=== PATIENT | female | born 1950 | race Caucasian/White ===

== ENCOUNTER 2022-09-30 00:03 | Emergency (ER) | payer MEDICARE, BC, SELFPAY ==
[2022-09-30 00:06] VITALS: BP 177/87; PULSE 65; RESP 18; TEMP 36.6; O2SAT 97; BMI 43.1
--- NOTE | 2022-09-30 00:56 | RAD_ITS ---
INDICATION: cough EXAMINATION/TECHNIQUE: X-RAY - XR Chest 2 Views COMPARISON: None. FINDINGS: LINES/DEVICES: None. LUNGS: No consolidation or evidence of an effusion. No evidence of edema or a pneumothorax. MEDIASTINUM AND CARDIOVASCULAR STRUCTURES: Cardiac silhouette is normal in size and contour. Mediastinum is unremarkable. BONES AND SOFT TISSUES: No acute abnormality. RAD/Chest PA and Lateral IMPRESSION: No evidence of acute cardiopulmonary disease. Electronically Signed: Alex Sims DO at 1:43 EDT ,
[2022-09-30 01:09] VITALS: PULSE 66; RESP 18
[2022-09-30] MEDS: Ipratropium/Albuterol Sulfate 3 ML AMPUL.NEB INHALATION ×2 (01:09→02:26)
[2022-09-30] MEDS: Morphine 4 MG/ML Syringe IV (01:11)
[2022-09-30] MEDS: Ondansetron 4 MG/2 ML Vial IV (01:11)
[2022-09-30] MEDS: MethylPREDNISolone 125 MG/2 ML Vial IV (01:12)
[2022-09-30 01:26] LABS: Absolute Lymphocyte Count 2.31 X10^3/uL (0.83-4.51); Absolute Neutrophil Count 2.1 X10^3/uL (2.0-7.7); Basophil# 0.02 X10^3/uL; Basophil% 0.4 % (0-1); Eosinophil# 0.14 X10^3/uL; Eosinophils% 2.8 % (0-5); Hematocrit 38.1 % (37-47); Hemoglobin 12.4 g/dL (12.0-15.0); Lymphocyte # 2.31 X10^3/ul (0.83-4.51); Mean Corp Hgb Conc 32.5 g/dL (32-36); Mean Corpuscular Hgb 31.7 pg (27.0-32.0); Mean Corpuscular Volume 97.4 fL (81-99); Mean Platelet Vol. 9.7 fl (6.2-12.0); Monocyte# 0.44 X10^3/uL; Monocyte% 8.8 % (0-10); NRBC Flagged by Analyzer 0 % (0-5); Neutrophil # 2.09 X10^3/uL (2.7-7.7); Neutrophil % 41.6 % (47-70); Platelet Count 224 K/mm3 (150-450); RBC Distribution Width CV 13.1 % (11.6-14.6); RBC Distribution Width SD 46.8 fl (35.1-43.9); Red Blood Count 3.91 M/mm3 (4.2-5.4)
[2022-09-30] MEDS: Orphenadrine 60 MG/2 ML Ampul IV (01:30)
[2022-09-30 01:39] VITALS: BP 189/65; PULSE 62; RESP 20; O2SAT 95
[2022-09-30 01:41] LABS: Anion Gap 8 (5-15); BUN 17 mg/dL (7-18); BUN/Creat Ratio 15.7 RATIO (10-20); Calcium,Total 9.1 mg/dL (8.5-10.1); Chloride 102 mmol/L (98-107); Creatinine, Serum 1.08 mg/dL (0.55-1.02); EST Glomerular Filtration Rate 53 mL/min (>60); Est Glom Filt Rate - Afr Amer 65 mL/min (>60); Estimated Creatinine Clearance 38.34 ml/min; Glucose 114 mg/dL (74-106); Potassium 3.1 mmol/L (3.5-5.1); Sodium Level 139 mmol/L (136-145)
[2022-09-30 01:59] LABS: D-Dimer Quantitative (DVT/PE) 0.61 FEU/ug/m (0.27-0.49)
--- NOTE | 2022-09-30 02:20 | EDS_ITS ---
HPI History of Present Illness Chief Complaint: Chest Other Informant: patient and spouse/S.O. Narrative Narrative: Patient is a 72-year-old female with past medical history of hypertension and IBS. She states that she has had some mild congestion and cough for the past 5 to 7 days. She states it is a point now where she has right-sided rib pain that worsens with cough or motion. She denies any trauma. She denies any history of DVT/PE but does report that she recently traveled to and from [place] and [place]. At this time with the persistent cough and shortness of breath and now right- sided rib pain she is concerned about possible infection or clot and therefore comes in for evaluation [facility] Medical History (Updated 09/30/22 @ 07:[address] Kris Winn, DO) Hypertension IBS (irritable bowel syndrome) Home Medications albuterol sulfate 90 mcg/actuation aerosol inhaler (Ventolin HFA) 1 - 2 puff inhalation Q4H PRN PRN Wheezing #1 device 09/30/22 [Rx Last Taken Unknown] atorvastatin 10 mg tablet mg 09/30/22 [History Last Taken Unknown] hydrochlorothiazide 12.5 mg capsule mg 09/30/22 [History Last Taken Unknown] hydrocodone-homatropine 5 mg-1.5 mg/5 mL (5 mL) oral syrup (Hycodan) 5 ml PO 4X/DAY PRN cough 7 days #140 mL 09/30/22 [Rx Last Taken Unknown] prednisone 20 mg tablet 20 mg PO DAILY 5 days #5 tabs 09/30/22 [Rx Last Taken Unknown] valacyclovir 500 mg tablet mg 09/30/22 [History Last Taken Unknown] valsartan 80 mg tablet mg 09/30/22 [History Last Taken Unknown] Allergy/AdvReac Type Severity Reaction Status Date / Time ANGELO Inhibitors AdvReac cough Verified 09/30/22 00:13 Surgical History (Updated 09/30/22 @ 00:14 by Gabriela Carrasco) History of cholecystectomy Social History Smoking Status: Never smoker ROS ROS ED Constitutional Constitutional ED: Denies chills or fever(s) ENT ENT ED: Reports rhinorrhea and sore throat Cardiovascular Cardiovascular: Denies chest pain Respiratory/Chest Respiratory/Chest: Reports cough and dyspnea Gastrointestinal Gastrointestinal: Denies abdominal pain, diarrhea, nausea or vomiting Genitourinary Genitourinary ED: Denies dysuria Musculoskeletal Musculoskeletal: Reports myalgias Integumentary Denies rash Neurologic Neurologic: Denies headache(s) Hematologic/Lymphatic Hematologic/Lymphatic: Denies easy bleeding or easy bruising EXAM Physical Exam Const Vital Signs: 09/30/22 00:06 09/30/22 00:09 09/30/22 01:09 Temperature 97.9 F Temperature Source Oral Pulse Rate 65 66 Respiratory Rate 18 18 Respiratory Effort Normal Non-Labored Respiratory Pattern Normal Normal Blood Pressure 177/87 H Blood Pressure Mean 117 Pulse Ox 97 Oxygen Delivery Method Room Air 09/30/22 01:39 09/30/22 02:35 Temperature Temperature Source Pulse Rate 62 82 Respiratory Rate 20 H 18 Respiratory Effort Respiratory Pattern Blood Pressure 189/65 H 165/74 H Blood Pressure Mean 106 Pulse Ox 95 99 Oxygen Delivery Method Room Air Positive well nourished, well developed and obese General Appearance ED: well developed Nutritional Appearance: obese HEENT Reports moist mucous membranes HEENT Narrative: Nasal mucosa is hyperemic and boggy and there is cobblestoning the posterior pharynx consistent with sinus drainage but no airway edema or compromise Eyes PERRL and EOMs intact bilaterally Neck supple and no JVD Chest Wall Chest Narrative: There is pain on palpation of the right posterior ribs regions 10-12 without bony deformity or crepitance Resp Resp Narrative: Breath sounds are diminished throughout and there is diffuse expiratory wheeze present with faint rhonchi in the bilateral bases Cardio regular rate and regular rhythm Extremity normal to inspection Extremity Narrative: No asymmetric edema no pitting edema negative Homans' sign bilaterally Neuro oriented x3 and CN's II-XII intact bilaterally Sensorium / Orientation: alert Psych mental status grossly normal Skin no rashes or lesions noted Skin Narrative: No overlying soft tissue skin changes to suggest trauma or infection MDM MDM MDM Narrative Medical decision making narrative: Patient presented to the ER in no acute distress she was hypertensive but has had a past medical history of this. Her pain is very reproducible and worse with coughing and she denies increased pain with deep breathing. However as she has recent travel DVT/PE is still a possibility. Other differential is a viral upper respiratory tract infection with rib strain/contusion or pneumonia or pneumothorax. Basic blood work is obtained which shows no leukocytosis or left shift and the patient's D-dimer is technically normal for her age as at age 72 a normal value is less than 0.7. Chest x-ray revealed no acute lung pathology. Patient was given steroids and breathing medication on reevaluation has had improvement of symptoms. At this time she is not hypoxic or in respiratory distress and as she is not having signs of pneumothorax or DVT/PE there is no need for admission to the hospital and she otherwise safe for discharge. History & Record Review Discussion w/independent historian: Patient and Significant other Lab Data Attestation: I reviewed the patient's lab results. Labs: Laboratory Results - last 24 hr 09/30/22 09/30/22 09/30/22 01:05 01:05 01:05 WBC 5.0 RBC 3.91 L Hgb 12.4 Hct 38.1 MCV 97.4 MCH 31.7 MCHC 32.5 RDW Std Deviation 46.8 H RDW Coeff of Lam 13.1 Plt Count 224 MPV 9.7 Immature Gran % (Auto) 0.400 Neut % (Auto) 41.6 L Lymph % (Auto) 46.0 H [place] % (Auto) 8.8 Eos % (Auto) 2.8 Baso % (Auto) 0.4 Absolute Neuts (auto) 2.1 Absolute Lymphs (auto) 2.31 Nucleated RBC % 0 D-Dimer Quant (PE/DVT) 0.61 H* Sodium 139 Potassium 3.1 L Chloride 102 Carbon Dioxide 29.0 Anion Gap 8 BUN 17 Creatinine 1.08 H Estim Creat Clear Calc 38.34 Est GFR (MDRD) Af Amer 65 Est GFR (MDRD) Non-Af 53 L BUN/Creatinine Ratio 15.7 Glucose 114 H Calcium 9.1 Radiography Diagnostic Testing: Clinical Impression(s) from Imaging Studies Chest X-Ray 09/30/22 00:56 IMPRESSION: No evidence of acute cardiopulmonary disease. Electronically Signed: Alex Sims DO at 1:43 EDT , Chest x-ray as interpreted by the emergency medicine physician reveals no acute infiltrate pneumothorax or pleural effusion Discharge Plan Triage Chief Complaint: Chest Other ED Provider: Kris Winn Dx/Rx/DC Orders Clinical Impression: Acute upper respiratory infection, Rib pain on right side, Hypertension Instructions: ED URI, Viral W/ Wheezing (Adult) Prescriptions: New prednisone 20 mg tablet 20 mg PO DAILY 5 Days Qty: 5 0RF albuterol sulfate [Ventolin HFA] 90 mcg/actuation HFA aerosol inhaler 1 - 2 puff inhalation Q4H PRN PRN (Reason: Wheezing) Qty: 1 0RF hydrocodone-homatropine [Hycodan] 5-1.5 mg/5 mL (5 mL) syrup 5 ml PO 4X/DAY PRN (Reason: cough) 7 Days Qty: 140 0RF No Action atorvastatin 10 mg tablet valsartan 80 mg tablet valacyclovir 500 mg tablet hydrochlorothiazide 12.5 mg capsule Primary Care Provider: Tony Busch Referrals: Tony Busch MD [Primary Care Provider] - Activity Restrictions/Additional Instructions: Your work-up today does not show any obvious hole in your lung or pneumonia. Your D-dimer is technically normal for your age going against blood clot. Therefore I feel your pain is related to a virus leading to muscular spasm and lung inflammation. Therefore take the medications as directed to help control this and return to the ER should you have any further concerns Disposition Disposition: Home, Self Care Discharge Date/Time: 09/30/22 03:53
[2022-09-30] MEDS: oxyCODONE 5 MG Tablet PO (02:33)
[2022-09-30 02:35] VITALS: BP 165/74; PULSE 82; RESP 18; O2SAT 99
--- NOTE | 2022-09-30 02:53 | CPS ---
[0226] x1 Duoneb given to pt. in ER. Pre-tx HR = 58, RR = 18 with scattered wheezes through out. Post-tx HR = 60, RR = 18 with clearer breath sounds and scattered wheezes.
== END 2022-09-30 03:53 | disposition home or self-care (01) ==
PROVIDERS: Emergency Provider Emergency Medicine; PCP Family Medicine; Visit Provider Emergency Medicine
DX: J06.9 Acute upper respiratory infection, unspecified (principal); I10 Essential (primary) hypertension; R06.02 Shortness of breath; R07.81 Pleurodynia; K58.9 Irritable bowel syndrome, unspecified
CPT/HCPCS: 71046; 80048; 85025; 85379; 94640; 96374; 96375; 99283; J2405

== ENCOUNTER 2024-07-27 08:38 | Day surgery (SDC) | payer MEDICARE, BC, SELFPAY ==
[2024-07-18 11:47] LABS: Hematocrit 41.2 % (37-47); Hemoglobin 13.7 g/dL (12.0-15.0); Mean Corp Hgb Conc 33.3 g/dL (32-36); Mean Corpuscular Volume 99.3 fL (81-99); Mean Platelet Vol. 10.6 fl (6.2-12.0); Platelet Count 229 K/mm3 (150-450); RBC Distribution Width CV 13.1 % (11.6-14.6); RBC Distribution Width SD 47.4 fl (35.1-43.9); Red Blood Count 4.15 M/mm3 (4.2-5.4); White Blood Count 6.1 K/mm3 (4.4-11.0)
[2024-07-18 12:22] LABS: Anion Gap 10 (5-15); BUN 15 mg/dL (4-19); BUN/Creat Ratio 16.6 RATIO (10-20); Calcium,Total 9.4 mg/dL (7.6-11.0); Carbon Dioxide 25.7 mmol/L (21.0-32.0); Chloride 104 mmol/L (98-108); Creatinine, Serum 0.92 mg/dL (0.70-1.20); EST Glomerular Filtration Rate 66 (>60); Glucose 76 mg/dL (70-99); Potassium 4.2 mmol/L (3.3-5.1); Sodium Level 139 mmol/L (133-145)
--- NOTE | 2024-07-26 17:37 | HP.PCM.OB_ITS ---
History and Physical Date of Admission: 07/27/24 Expand All Collapse AllExpand All by Default Pre-Op History and Physical HPI: The patient is a 73 year old female presenting for discussion regarding PMB, thickened EM. Not able to obtain EMB in office. Pt with another episode of PMB- light flow. pre-operative visit. She is scheduled for Hysteroscopy D&C, for thickened EM and PMB on 07/27/24. Procedure discussed along with risks, benefits and complications. Other alternatives discussed for management. Consent form signed? Yes. PAST MEDICAL HISTORY PAST MEDICAL HISTORY Diagnosis Date ? Basal cell carcinoma (BCC) of skin of face 2002 left forehead ? Chronic kidney disease (CKD), stage III (moderate) (HCC) ? Essential hypertension ? Herpes labialis ? History of colonic polyps ? Spinal stenosis PAST SURGICAL HISTORY PAST SURGICAL HISTORY Procedure Laterality Date ? EYE SURGERY HX ? REMOVAL GALLBLADDER 2014 ? REMV CATARACT EXTRACAP,INSERT LENS Right 2015 ? SKIN BIOPSY HX ? TONSILLECTOMY & ADENOIDECTOMY <AGE 14 CURRENT MEDICATIONS Current Outpatient Medications Medication Sig Dispense Refill ? pregabalin (LYRICA) 100 mg capsule Take 1 capsule by mouth three times a day for 180 days. 270 capsule 1 ? atorvastatin (LIPITOR) 10 mg tablet Take 1 tablet by mouth daily at bedtime. For cholesterol. 90 tablet 1 ? valACYclovir (VALTREX) 500 mg tablet Take 1 tablet by mouth once daily. 90 tablet 1 ? valsartan (DIOVAN) 80 mg tablet Take 1 tablet by mouth once daily. 90 tablet 1 ? hydroCHLOROthiazide 25 mg tablet Take 1 tablet by mouth once daily. 90 tablet 1 ? valACYclovir (VALTREX) 500 mg tablet ? Acetaminophen (TYLOPHEN) 500 mg cap Take 500 mg by mouth as needed for pain. No current facility-administered medications for this visit. ALLERGIES: Lisinopril PERSONAL HISTORY: SOCIAL HISTORY Social History Tobacco Use ? Smoking status: Never ? Smokeless tobacco: Never Vaping Use ? Vaping status: Never Used Substance Use Topics ? Alcohol use: Not Currently ? Drug use: Never FAMILY HISTORY: FAMILY HISTORY FAMILY HISTORY Problem Relation Age of Onset ? other (bladder cancer) Father ? other (smoker) Father ? Alcohol abuse Father ? other (leukemia) Mother ? other (smoker) Mother ? Bipolar disorder Sister ? Alcohol abuse Brother ? Drug abuse Brother ? Hypertension Brother ? Chronic Kidney Disease Brother ? Breast Cancer Maternal Grandmother ? Cancer Maternal Grandfather ? Stroke Paternal Grandfather ? No Ocular Disease No Family History REVIEW OF SYMPTOMS: negative except as noted above PHYSICAL EXAMINATION: VITALS: Blood pressure 142/82, height 156.2 cm (5' 1.5), weight 93.9 kg (207 lb), last menstrual period 01/31/2003. GENERAL: The patient is well nourished, well hydrated in no acute distress. , The patient is oriented to time, place, and person. NECK: full range of motion LUNGS: Clear to auscultation bilaterally. no wheezes, rhonchi or rales HEART: Regular rate and rhythm, Normal heart sounds, and No murmurs or gallops Indication Postmenopausal bleeding Impression The uterus is axial and measures 84 mm x 29 mm x 39 mm. A axial uterus seen that measures 84 mm x 29 mm x 39 mm. The myometrium is echogenic, heterogeneous but no obvious fibroids and is suggestive of adenomyosis. The endometrial thickness is 6.7 mm. The avascular endometrium is heterogenous and appears irregular. The endometrial-myometrial junction is not well defined. There is a right lateral anterior wall intramural adenofibroma versus a fibroid that measures 6 mm x 9 mm x 8 mm. The right ovary is not visualized. The left ovary is not visualized. There is no free fluid visualized. Technique: Three dimensional imaging was created on a dedicated stand-alone 3D workstation with images created and archived, and supervised and reviewed by the interpreting physician utilizing images from a US Scan performed on 06/22/24. Recommendations Recommend endometrial sampling. Consider SIS for further evaluation of endometrial cavity if clinically indicated. Ultrasound findings suggestive for adenomyosis. Clinical correlation is recommended. 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 View: Suboptimal view: due to axial uterine orientation. Suboptimal view: restricted by increased bowel gas IMPRESSION: 73yo with PMB, thickened EM PLAN: Hysteroscopy, D&C Pt has been counseled on risks/benefits and alternatives of surgery including but not limited to anesthesia, bleeding, infection, uterine perforation with subsequent injury to pelvic structures including bowel, bladder, ureters and vessels. Pt wishes to proceed with surgery at this time. Pre and post op instructions reviewed I have reviewed and updated past medical and surgical history, medications and allergies Erica Grace MD Office Visit on 07/17/2024 Note shared with patient
[2024-07-27] VITALS (9 sets, daily range): BP systolic 134–161; BP diastolic 63–91; PULSE 51–66; RESP 16–18; TEMP 36.3–36.6; O2SAT 97–100; BMI 37.6
--- NOTE | 2024-07-27 | EMB_PTH ---
PATIENT: ARNOLD WHARTON [place]: [facility] [place] U[place][id number] AGE/SX: 73/F ROOM: RE07/27/[address]: Dr. Erica Portillo, MDDOB: 1950 BED: DIS: 07/27/2024 SPEC #: [id number] RECD: 07/27/24 13:14 STATUS: CORNELIUS NGO #: [id number] EDUARDO: 07/27/24 00:[address]: Erica Portillo DEPT: SURGICAL PATHOLOGY RECD BY: Carlton Amaya ENTERED: 07/27/24 13:14 SP TYPE: ENDOM BX/C EMELY DR: Dr. Tony Busch MD Tissues: Endometrium, NOS Procedures: Surgery Specimen Level IV HEADER OPERATION: Hysteroscopy, D&C, polypectomy PRE-OP DIAGNOSIS: Post menopausal bleeding, endometrial polyp TISSUE SUBMITTED: A- Endometrial curettings, endometrial and endocervical polyp MICROSCOPIC DIAGNOSIS A. ENDOMETRIUM AND ENDOCERVIX, CURETTAGE AND POLYPECTOMY: * ENDOMETRIAL HYPERPLASIA WITHOUT ATYPIA. * POLYPOID FRAGMENTS OF ENDOCERVIX WITH DILATED ENDOCERVICAL GLANDS, SUGGESTIVE OF ENDOCERVICAL POLYP(S).. MICROSCOPIC DESCRIPTION Slides are reviewed. GROSS DESCRIPTION A. Received in formalin labeled, Arnold Wharton, and designated endometrial curettings and endometrial/endocervical polyp, are multiple pink-gutiérrez, irregularly-shaped, soft tissue fragments and mucus that aggregate to 3.4 x 3.0 x 0.2 cm. Totally submitted in one cassette.STEPHANIE 07/27/2024 CPT:27292
--- NOTE | 2024-07-27 09:23 | PCM.PRE.AN2 ---
ASA Classification* ASA Classification ASA Classification: 2 Assessment & Plan Anesthesia* Anesthesia Assessment Anesthesia Assessment: Discussed sedation and/or anesthesia options, risks, benefits, and alternatives with patient/parents/legal guardian/POA. Questions invited. The patient/parents/legal guardian/POA seems to understand and agrees to proceed with anesthesia plan. Reviewed the physical assessment, medical history, allergy history and patient home medications list prior to surgery/procedure/anesthetic and documented any changes. Performed airway and anesthesia risk assessments. Anesthesia Type Anesthesia Type: MAC History Source History Obtained from:: Patient and Chart Anesthesia Focused Assessment* Temperature: 97.8 F Pulse Rate: 59 Blood Pressure: 153/63 Respiratory Rate: 18 Pulse Ox: 100 Oxygen Delivery Method: Room Air Airway Assessment Mouth opens: >3 cm Mallampati Score: II Teeth Condition: Caps/Crowns (Patient has a couple crowns. They are tight.) Neck Range of motion (ROM): Limited ROM (Slight decrease in extension) Focused Labs Anesthesia Preop lab: CBC WBC 6.1 K/mm3 (4.4-11.0) 07/18/24 11:32 07/18/24 RBC 4.15 M/mm3 (4.2-5.4) L 07/18/24 11:32 07/18/24 Hgb 13.7 g/dL (12.0-15.0) 07/18/24 11:32 07/18/24 Hct 41.2 % (37-47) 07/18/24 11:32 07/18/24 Plt Count 229 K/mm3 (150-450) 07/18/24 11:32 07/18/24 CHEMISTRY Potassium 4.2 mmol/L (3.3-5.1) 07/18/24 11:32 07/18/24 Sodium 139 mmol/L (133-145) 07/18/24 11:32 07/18/24 BUN 15 mg/dL (4-19) 07/18/24 11:32 07/18/24 Creatinine 0.92 mg/dL (0.70-1.20) 07/18/24 11:32 07/18/24 Glucose 76 mg/dL (70-99) 07/18/24 11:32 07/18/24 COAG Pre-Assessment Diagnosis/Proposed Procedure Planned Operative Procedure(s): Hysteroscopy, Dilation and Curettage Anesthesia History Anesthesia History - station supervisor: Anesthesia History - station supervisor Hx Hospitalization No 07/18/24 09:22 Any Problems With Anesthesia No 07/18/24 09:22 Cholinesterase deficiency No 07/18/24 09:22 You/Your Family Experience No 07/18/24 09:22 fever (hyperthermia) with Relationship Recent Exposure to Contagious No 07/27/24 09:09 Disease Does patient have nerve No 07/18/24 09:22 stimulator Patient instructed to have device shut off --Does patient have Pacemaker No 07/27/24 09:09 or ICD? When Was Last Pacemaker Check QUESTION #4 FULL TEXT: You/Your Family Experience fever (hyperthermia) with Anesthesia Last Oral Intake Last Oral intake: Last Oral Intake NPO since 08:00 07/27/24 09:09 Meds taken in AM with sips of Yes 07/27/24 09:09 water? Meds patient instructed to see med rec 07/27/24 09:09 take am of surgery Any additional information?: Yes NPO since: 08:00 (Patient had tea at 8 AM.) Meds taken in AM with sips of water?: Yes PONV PONV - station supervisor: PONV - station supervisor Female Yes 07/18/24 09:22 HX of Motion Sickness No 07/18/24 09:22 HX of N/V After Surgery No 07/18/24 09:22 Non-Smoker Yes 07/18/24 09:22 Duration of Surgery greater No 07/18/24 09:22 than 60 minutes Number of Risk Factors 2 07/18/24 09:22 PONV Score Moderate Risk 07/18/24 09:22 Height & Weight Height & Weight: Anesthesia: Height & Weight Height 5 ft 2 in 07/27/24 09:09 Weight: 93.4 kg 07/27/24 09:09 Body Mass Index (BMI) 37.6 07/27/24 09:09 Respiratory Assessment Respiratory Assessment - station supervisor: Respiratory Tract Infection Hx - station supervisor Hx Respiratory Tract Infection No 07/18/24 09:22 STOP Sleep Apnea STOP Sleep Apnea - station supervisor: STOP Sleep Apnea - station supervisor Hx Hypertension Yes: CONTROLLED WITH MED 07/18/24 09:22 Hx Sleep Apnea No 07/18/24 09:22 CPAP BIPAP Do you snore loudly (louder No 07/18/24 09:22 than talking or can be heard Do you often feel tired/ No 07/18/24 09:22 fatigued/ sleepy during daytime? Has anyone observed you stop No 07/18/24 09:22 breathing during sleep? STOP Results Negative 07/18/24 09:22 QUESTION #5 FULL TEXT : Do you snore loudly (louder than talking or can be heard through closed doors)? Tobacco Use History Tobacco Use History - station supervisor: Tobacco Use History - station supervisor Tobacco Use Smoking Status Never smoker 07/18/24 09:22 Hx Tobacco Use No 07/18/24 09:22 Years Smoking Packs Smoked per Day Smoking Cessation Date was within the last 15 years Hx Smoking Cessation Date Hx Smoking Cessation Counseling Hematologic Medial History Hematologic Hx - station supervisor: Hematologic Medical Hx - registration coordinator Hx of Blood Transfusion No 07/18/24 09:22 Hx of Transfusion in last 3 No 07/18/24 09:22 Months Date of Last Transfusion (if within last 3 months) Ever experience any problems No 07/18/24 09:22 with transfusion(s)? Specify any problems Hx of Preganancy in last 3 N/A 07/18/24 09:22 Months Nurse Filling Out Transfusion NBUCHER 07/18/24 09:22 & Questions: Date: 07/18/24 07/18/24 09:22 Time: 09:24 07/18/24 09:22 Patient unable to answer at this time (ie. confused, unrespo /Reproduction History /Reproductive History - station supervisor: /Reproductive Hx- station supervisor Hx Now No 07/18/24 09:22 Gestational Age (in weeks): EDC: Hx Hx Para Hx Section SAB No 07/18/24 09:22 PFSH Medical History Wears glasses Cancer Depression Arthritis High cholesterol Non-smoker Diverticulosis History of stress test Hypertension IBS (irritable bowel syndrome) Home Medications ?Medication ?Instructions ?Recorded ?Last Taken ?Type atorvastatin 10 mg tablet 10 mg PO QHS 09/30/22 Unknown History hydrochlorothiazide 12.5 mg capsule 25 mg PO DAILY 09/30/22 07/27/24 08:00 History valacyclovir 500 mg tablet 500 mg PO DAILY 09/30/22 Unknown History valsartan 80 mg tablet 80 mg PO DAILY 09/30/22 07/27/24 08:00 History pregabalin 100 mg capsule 100 mg PO TID 07/18/24 Unknown History Allergy/AdvReac Type Severity Reaction Status Date / Time ANGELO Inhibitors AdvReac cough Verified 07/27/24 09:08 Surgical History History of esophagogastroduodenoscopy (EGD) History of colonoscopy History of tonsillectomy (~1962) History of History of right cataract extraction (~2015) History of cholecystectomy (~2014) Social History Smoking Status: Never smoker Review of Systems (Anesthesia) ROS Narrative System reviewed and no additional complaints, except as documented.
--- NOTE | 2024-07-27 11:25 | OP.PCM_ITS ---
Operative Report (Standard) Operative Information Date of Procedure: 07/27/24 Pre-Operative Diagnosis: PMB, thickened endometrium, stenotic cervix Post-Operative Diagnosis: same, endometrial and Endocervical polyp Surgery/Procedure Performed: hysteroscopy, D&C, polypectomy with symphion coal loader: Yes Press Operator: NILESH stephenson Tasks completed by school psychologist assistant: Retracting Additional construction project assistant?: No Type of Anesthesia: MAC RN Documented Start/Stop Times: Operation Date: 07/27/24 10:20 Case Time Into Pre-Op 07/27/24 08:47 Out of Pre-Op 07/27/24 10:38 Anesthesia Start 07/27/24 10:40 Into Room 07/27/24 10:40 Procedure Start 07/27/24 10:57 Procedure End 07/27/24 11:24 Procedure Start Time: 10:57 Procedure Stop Time: 11:24 Select all DRAINS/GRAFTS/IMPLANTS that apply: None Estimated Blood Loss: <5cc Specimen collected: Yes Description of specimen(s) removed: endometrial curettings, endometrial polyps, endocervical polyps Description of surgery: multiple endometrial and enodcervical polyps noted. Surgical Findings: Informed consent was obtained the patient was taken the operating room she was placed in supine position. She was given anesthesia. She was then placed in the [facility] where she was prepped and draped in the normal sterile fashion. bladder drained prior to start of procedure. At this time the weighted speculum was placed in the posterior fornix of vagina. Single-tooth tenaculum was used to gently grasp the anterior lip the cervix. At this time the uterine cavity was sounded to approximately 10 cm. Gentle dilatation was performed once adequate dilatation of the cervix was achieved the hysteroscope using normal saline as a distention medium was placed. Tubal ostia visualized. endometrial and endocervical polyps noted- at this this regular hysteroscope changed to symphion. Symphion resecting device used to obtain endometrial curettings and to perform multiple polypectomy. Tissue will be sent to pathology for evaluation. Tenaculum removed. Good hemostasis. Instrument, lap count correct x 2. Vaginal Sweep was negative. deficit 650cc Complications Complications: No Admit VTE Documentation VTE Present on Admission: Yes VTE Mechan Device Prophylaxis: SCD's VTE Pharm Prophylaxis ordered?: No Reason prophylaxis not ordered: Treatment Not Indicated
--- NOTE | 2024-07-27 11:28 | PCM.POST.ANE ---
Anesthesia: Postop Eval I Current Vital Signs Temperature: 97.5 F Pulse Rate: 66 Blood Pressure: 135/63 Respiratory Rate: 16 Pulse Ox: 98 Oxygen Delivery Method: Room Air Assessment Airway patent: Yes Spontaneous unlabored respirations: Yes Mental status: Awake and Calm nausea: No Vomiting: No Anesthesia Complication: No Fluid Hydration Crystalloid volume administer (ml): 500 Total IV fluid infused: 500 Progress Note Anesthesia document: Postop Eval 1 completed: Yes
--- NOTE | 2024-07-27 11:30 | PCM.DC ---
Discharge Instructions Diet Discharge Diet: No restrictions DC O2, CPAP, BIPAP needs Home O2 Discharge instructions: No Dressing / Incision May resume sexual activity in: 1 week Dressing / Incision Call your doctor if you observe: Fever of 101 or Higher, Inability to urinate, Using more than 1 pad per hour and Uncontrolled pain Follow Up Care Please Follow Up With: Erica Portillo MD When: 1-2 weeks post OP if you need an appointment please call [phone] Test Results: Test results from this visit will be discussed in further detail at your follow-up appointment, if applicable. Discharge Plan Admission Attending Provider: Erica Portillo Primary Care Provider: Tony Busch Instructions Print Language: Hungarian Discharge Orders/Prescriptions Prescriptions: No Action atorvastatin 10 mg tablet 10 mg PO QHS valsartan 80 mg tablet 80 mg PO DAILY valacyclovir 500 mg tablet 500 mg PO DAILY hydrochlorothiazide 12.5 mg capsule 25 mg PO DAILY pregabalin 100 mg capsule 100 mg PO TID Referrals / Follow Up: Tony Busch MD [Primary Care Provider] - Disposition Disposition (needs filled in before D/C Order can be placed): Home, Self Care
[2024-07-27] MEDS: HYDROcodone Bitartrate/Apap 5/325 Tablet PO (12:34)
--- NOTE | 2024-07-27 22:46 | POSTOPAN2_ITS ---
Anesthesia Postop Eval I Sum Postop Eval Completion status Anesthesia document: Postop Eval 1 completed: Yes Anesthesia Postop Eval I Summary Anesthesia Postop Eval I Summary: Anesthesia Postop Eval I: Assessment Summary Airway patent Yes 07/27/24 11:35 VP [email or web address] Spontaneous unlabored Yes 07/27/24 11:35 VP [email or web address] respirations Mental status Awake,Calm 07/27/24 11:35 VP [email or web address] nausea No 07/27/24 11:35 VP [email or web address] Vomiting No 07/27/24 11:35 VP [email or web address] Anesthesia Postop Eval I: Fluid Summary Crystalloid volume administer 500 07/27/24 11:35 VP [email or web address] (ml) Colloids volume administered ( ml) Blood Product volume administered (ml) Total IV fluid infused 500 07/27/24 11:35 VP [email or web address] Anesthesia Postop Eval I: Summary Notes Anesthesia Complication No 07/27/24 11:35 VP [email or web address] Anesthesia Complication Comment: Post-operative progress note Anesthesia: Postop Eval II Evaluation Mental status: Awake and Calm Pain Level: 1 nausea: No Vomiting: No Complications Anesthesia Complication: No
--- NOTE | 2024-07-27 22:46 | PCM.POSTANE2 ---
Anesthesia Postop Eval I Sum Postop Eval Completion status Anesthesia document: Postop Eval 1 completed: Yes Anesthesia Postop Eval I Summary Anesthesia Postop Eval I Summary: Anesthesia Postop Eval I: Assessment Summary Airway patent Yes 07/27/24 11:35 [email or web address] Spontaneous unlabored Yes 07/27/24 11:35 [email or web address] respirations Mental status Awake,Calm 07/27/24 11:35 [email or web address] nausea No 07/27/24 11:35 [email or web address] [email or web address] Vomiting No 07/27/24 11:35 [email or web address] Anesthesia Postop Eval I: Fluid Summary Crystalloid volume administer 500 07/27/24 11:35 [email or web address] (ml) Colloids volume administered ( ml) Blood Product volume administered (ml) Total IV fluid infused 500 07/27/24 11:35 [email or web address] Anesthesia Postop Eval I: Summary Notes Anesthesia Complication No 07/27/24 11:35 [email or web address] Anesthesia Complication Comment: Post-operative progress note Anesthesia: Postop Eval II Evaluation Mental status: Awake and Calm Pain Level: 1 nausea: No Vomiting: No Complications Anesthesia Complication: No
== END 2024-07-27 13:19 | disposition home or self-care (01) ==
LOC: SDC 08:38 → AC 08:39
PROVIDERS: PCP Family Medicine; Referring Provider Obstetrics & Gynecology; Visit Provider Obstetrics & Gynecology
PROC: 0UDB8ZZ Extraction of Endometrium, Via Natural or Artificial Opening Endoscopic (ICD-10-PCS; CPT 58558; principal; 2024-07-27 10:10)
DX: N95.0 Postmenopausal bleeding (principal); N18.30 Chronic kidney disease, stage 3 unspecified; N84.0 Polyp of corpus uteri; I12.9 Hypertensive chronic kidney disease with stage 1 through stage 4 chronic kidney disease, or unspecified chronic kidney disease; Z79.899 Other long term (current) drug therapy
CPT/HCPCS: 58558; 36415; 80048; 85027; 88305; A4216; J2405

== ENCOUNTER 2025-02-15 11:07 | Emergency (ER) | payer MEDICARE, BC, SELFPAY ==
[2025-02-15 11:08] VITALS: BP 129/70; PULSE 63; RESP 18; TEMP 36.6; O2SAT 100
[2025-02-15 11:18] VITALS: BMI 37.0
--- NOTE | 2025-02-15 12:15 | RAD_ITS ---
PROCEDURE: KNEE 4 OR MORE VIEWS 02/15/2025 REASON FOR EXAM: PAIN TECHNIQUE: Procedure Code: RADKN Modality: DX Procedure: KNEE 4 OR MORE VIEWS Laterality: Left knee COMPARISON: None FINDINGS: Bones: No fracture. No suspicious bone lesion. Joints: Normal alignment. Effusion: No effusion. Soft tissues: Soft tissues are unremarkable. Other: RAD/Knee 4 or More Views IMPRESSION: NO EFFUSION ACUTE FRACTURE OR DISLOCATION. Reading Location: [place] [address]
--- NOTE | 2025-02-15 12:22 | EDS_ITS ---
HPI History of Present Illness Chief Complaint: Lower Extremity Injury Narrative Narrative: Chief complaint and HPI: 74-year-old female with past medical history of arthritis, HTN presents for evaluation of left knee pain. Patient states she was getting into bed last evening when she stretched and twisted her left ankle. States since the incident she has had pain around the lateral edge of the knee. She denies any direct trauma to the knee. She denies any fever, chills. Denies any weakness or numbness/tingling. Review of systems: See HPI Medications: As listed on the chart Allergies: As listed on the chart PFSH: Per chart Vital signs: As listed on the chart. Reviewed. Physical exam: Gen: A&O x3, NAD Head: Normocephalic, atraumatic Eyes: No sclera icterus, conjunctiva clear ENT: Moist mucous membranes CV: Regular rate Resp: Nonlabored respirations Musc: Full range of motion of the left lower extremity including full flexion and extension of the knee, no knee instability, no deformity, knee without erythema/warmth/swelling/ecchymosis/rash, mildly tender to palpation around the lateral collateral ligament of the knee, DP/PT pulses +2 bilaterally, good capillary refill, sensation intact Skin: Warm, dry Psych: Cooperative, appropriate mood and affect [facility] History Wears glasses Cancer Depression Arthritis High cholesterol Non-smoker Diverticulosis History of stress test Hypertension IBS (irritable bowel syndrome) Home Medications ?Medication ?Instructions ?Recorded ?Last Taken ?Type atorvastatin 10 mg tablet 10 mg PO QHS cholesterol 02/14/25 History valacyclovir 500 mg tablet 500 mg PO DAILY anti viral 09/30/22 02/15/25 History valsartan 80 mg tablet 80 mg PO DAILY blood pressur e 09/30/22 02/15/25 History pregabalin 100 mg capsule 100 mg PO TID pain 07/18/24 02/15/25 History acetaminophen 500 mg capsule 1,000 mg PO PRN back pain 02/15/25 02/15/25 History hydrochlorothiazide 25 mg tablet 25 mg PO DAILY blood pressure 02/15/25 02/15/25 History ibuprofen 200 mg tablet (Addaprin) 400 mg PO PRN knee pain 02/15/25 Unknown History montelukast 10 mg tablet 10 mg PO QHS allergies 02/1502/14/25 History tramadol 50 mg tablet 50 mg PO DAILY PRN pain 01/3102/12/25 History Allergy/AdvReac Type Severity Reaction Status Date / Time ANGELO Inhibitors AdvReac cough Verified 02/15/25 11:13 Surgical History History of esophagogastroduodenoscopy (EGD) History of colonoscopy History of tonsillectomy (~1962) History of History of right cataract extraction (~2015) History of cholecystectomy (~2014) Social History (Updated 02/15/25 @ 11:19 by Frida Brasher) household members: spouse housing: house Smoking Status: Never smoker EXAM Physical Exam Const Vital Signs: 02/15/25 11:08 Temperature 97.9 F Temperature Source Temporal Pulse Rate 63 Respiratory Rate 18 Blood Pressure 129/70 H Blood Pressure Mean 89 Pulse Ox 100 Oxygen Delivery Method Room Air MDM MDM MDM Narrative Medical decision making narrative: 74-year-old female with past medical history of arthritis, HTN presents for evaluation of left knee pain. Patient states she was getting into bed last evening when she stretched and twisted her left ankle. States since the incident she has had pain around the lateral edge of the knee. See physical exam findings. Suspect knee sprain however differential also includes contusion and less likely fracture. X-ray of the knee was obtained. Oxycodone given for pain. X-ray of the knee was personally reviewed interpreted by me, ED physician. No fracture, dislocation, effusion, soft tissue swelling. Radiology in agreement. Patient's pain is likely secondary to a left knee sprain. Recommend following up with orthopedics. Tylenol and Motrin as needed for pain. Rest. Ice and elevation if swelling develops. Return back to ED symptoms change or worsen. She confirmed understand the plan. Patient will discharge home. Impression: 1. Left knee sprain Radiography Diagnostic Testing: Clinical Impression(s) from Imaging Studies Knee X-Ray 02/15/25 12:15 IMPRESSION: NO EFFUSION ACUTE FRACTURE OR DISLOCATION. Reading Location: [facility] Discharge Plan Triage Chief Complaint: Lower Extremity Injury ED Provider: Zeus Gottlieb Dx/Rx/DC Orders Prescriptions: No Action atorvastatin 10 mg tablet 10 mg PO QHS valsartan 80 mg tablet 80 mg PO DAILY valacyclovir 500 mg tablet 500 mg PO DAILY pregabalin 100 mg capsule 100 mg PO TID tramadol 50 mg tablet 50 mg PO DAILY PRN (Reason: pain) Patient Comments: takes as needed for extreme pain montelukast 10 mg tablet 10 mg PO QHS hydrochlorothiazide 25 mg tablet 25 mg PO DAILY acetaminophen 500 mg capsule 1,000 mg PO PRN Patient Comments: pt states she takes before bed at night ibuprofen [Addaprin] 200 mg tablet 400 mg PO PRN Primary Care Provider: Tony Busch Referrals: Tony Busch MD [Primary Care Provider, Family Practice] Print Language: [place]
[2025-02-15 12:51] VITALS: BP 116/80; PULSE 63; RESP 18; TEMP 36.6; O2SAT 100
== END 2025-02-15 12:57 | disposition home or self-care (01) ==
PROVIDERS: Emergency Provider Surgery; PCP Family Medicine; Visit Provider Surgery
DX: S83.92XA Sprain of unspecified site of left knee, initial encounter (principal); X50.1XXA Overexertion from prolonged static or awkward postures, initial encounter; I10 Essential (primary) hypertension; F32.A Depression, unspecified; E78.00 Pure hypercholesterolemia, unspecified; M19.90 Unspecified osteoarthritis, unspecified site; Z79.899 Other long term (current) drug therapy
CPT/HCPCS: 73564; 99282